=== PATIENT | male | born 1975 | race Two or more races ===

== ENCOUNTER 2019-02-09 21:44 | Emergency (ER) | payer OTHER ==
[~2019-02-09] VITALS: Ht 180.3 cm; Wt 95.3 kg
[2019-02-09 21:58] VITALS: BP 142/117
--- NOTE | 2019-02-09 22:06 | PHYS DOC ---
Past History Past Medical History: No Pertinent History Past Surgical History: No Surgical History Alcohol Use: Occasionally Drug Use: None Adult General Chief Complaint Chief Complaint: RECTAL BLEED.. ".. I ve got really bad rectal pain.. it is more on the right just inside.. I ve had hemorrhoids before.. but this is really painful tonight.. 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 Patient has had previous problems with hemorrhoids. And recently had some hard stools. Patient denies any active bright red bleeding currently. Patient normally follows at [place]. No recent travel. No specific ill contacts. No history immunosuppression. Patient does have findings of old hemorrhoid tag and inflamed small hemorrhoid on the right. There is a small fissure but does not appear to be particularly inflamed. Review of Systems Review of Systems Constitutional: Denies fever or chills [] Eyes: Denies change in visual acuity, redness, or eye pain [] HENT: Denies nasal congestion or sore throat [] Respiratory: Denies cough or shortness of breath [] Cardiovascular: No additional information not addressed in HPI [] GI: Denies abdominal pain, nausea, vomiting, bloody stools or diarrhea [. Patient]complaints of rectal pain : Denies dysuria or hematuria [] Musculoskeletal: Denies back pain or joint pain [] Integument: Denies rash or skin lesions [] Neurologic: Denies headache, focal weakness or sensory changes [] Endocrine: Denies polyuria or polydipsia [] All other systems were reviewed and found to be within normal limits, except as documented in this note. Family History Family History Noncontributory Current Medications Current Medications See nursing for home meds Allergies Allergies No known drug allergies Physical Exam Physical Exam Constitutional: Well developed, well nourished, in acute distress, non-toxic appearance. [] HENT: Normocephalic, atraumatic, bilateral external ears normal, oropharynx moist, no oral exudates, nose normal. [] Eyes: PERRLA, EOMI, conjunctiva normal, no discharge. [] Neck: Normal range of motion, no tenderness, supple, no stridor. [] Cardiovascular:Heart rate regular rhythm, no murmur [] Lungs & Thorax: Bilateral breath sounds clear to auscultation [] Abdomen: Bowel sounds normal, soft, no tenderness, no masses, no pulsatile masses. [] Findings of a small hemorrhoid and small fissure rectal area. Area very tender. No findings of pointing abscess Skin: Warm, dry, no erythema, no rash. [] Back: No tenderness, no CVA tenderness. [] Extremities: No tenderness, no cyanosis, no clubbing, ROM intact, no edema. [] Neurologic: Alert and oriented X 3, normal motor function, normal sensory function, no focal deficits noted. [] Psychologic: Affect anxious, judgement normal, mood normal. [] Current Patient Data Vital Signs Vital Signs Date Time Temp Pulse Resp B/P (MAP) Pulse Ox O2 Delivery O2 Flow Rate FiO2 02/09/19 21:58 97.7 77 22 97 Room Air EKG EKG [] Radiology/Procedures Radiology/Procedures [] Course & Med Decision Making Course & Med Decision Making Pertinent Labs and Imaging studies reviewed. (See chart for details) Patient to do sitz bath or hot showers frequently. Patient to apply Anusol HC suppositories up to 4 times a day. Patient keep stool soft. For marked pain may take Vicoprofen. Patient to apply Nupercaine or Dibucaine up 4 x day prn. Follow-up with GI or surgery to have a colonoscopy to evaluate internal hemorrhoids or other causes of rectal pain. Patient return if any concerns. [] Dragon Disclaimer Yana Disclaimer This electronic medical record was generated, in whole or in part, using a voice recognition dictation system. Departure Departure: Disposition: HOME/RESIDENCE PRIOR TO ADM Condition: STABLE Scripts Dibucaine (DIBUCAINE) 28 Gm Oint...g. 1 CLAIRE RC QIDPRN PRN for PAIN for 30 Days, #120 GM 0 Refills Prov: CHRISTINA WAYNE MD 02/09/19 Hydrocodone/Ibuprofen (HYDROCODONE-IBUPROFEN 7.5-200 ) 1 Each Tablet 1 TAB PO PRN Q6HRS PRN for PAIN, #30 TAB 0 Refills Prov: CHRISTINA WAYNE MD 02/09/19 Hydrocortisone Acetate (ANUSOL-HC) 25 Mg Supp.rect 25 MG RC QIDPRN PRN for PAIN, #120 SUPP.RECT Prov: CHRISTINA WAYNE MD 02/09/19 Yana Disclaimer This chart was dictated in whole or in part using Voice Recognition software in a busy, high-work load, and often noisy Emergency Department environment. It may contain unintended and wholly unrecognized errors or omissions. Dragon Disclaimer This chart was dictated in whole or in part using Voice Recognition software in a busy, high-work load, and often noisy Emergency Department environment. It may contain unintended and wholly unrecognized errors or omissions. CHRISTINA WAYNE MD Feb 09, 2019 22:06
[2019-02-09] MEDS ORDERED: HYDR-1179 PO (22:32)
[2019-02-09] MEDS ORDERED: HYDR25SU18 RC (22:32)
[2019-02-09] MEDS ORDERED: DIBU28OI RC (22:32)
[2019-02-09] MEDS ORDERED: DIBUCAINE RECTAL OINTMENT 28GM TUBE. RC ONE (23:00)
[2019-02-09] MEDS ORDERED: MAGNESIUM HYDROXIDE 2,400 MG/30 ML ORAL.SUSP. PO ONE (23:00)
[2019-02-09] MEDS ORDERED: KETOROLAC 60 MG/2 ML VIAL. IM ONE (23:00)
== END 2019-02-09 23:08 | disposition home or self-care (01) ==
LOC: ER 21:44
DX: K60.2 Anal fissure, unspecified (principal); K64.9 Unspecified hemorrhoids
CPT/HCPCS: 96372; 99283; J1885

== ENCOUNTER → 2019-02-20 | Outpatient (CLI) | payer OTHER ==
[2019-02-09 21:58] VITALS: BP 142/117
[~2019-02-20] MED LIST: CONTRAST GIVEN MC PRN; DIBU28OI RC; HYDR-1179 PO; HYDR25SU18 RC; IOHEXOL 240 MG/ML 50ML VIAL. ONE; IOHEXOL 300 MG/ML 75 ML VIAL. IV ONE
--- NOTE | 2019-02-20 15:10 | RAD ---
Examination: CT ABD PELV W/ORAL IV CONTRAST History: Rectal pain for 1 1/2 months Comparison/Correlation: None Findings: Axial images of the abdomen and pelvis were obtained following IV and oral contrast. Sagittal and coronal reformatted images were provided. Lung bases are clear. Liver, spleen, pancreas, adrenal glands, and kidneys are normal. Gallbladder fossa is unremarkable. Appendix is normal. No ascites or pelvic free fluid. Mild diverticulosis of the colon is present. Small umbilical hernia contains omental fat. Urinary bladder is unremarkable. Prostate gland is slightly enlarged measuring up to 4.8 cm transverse. No enlarged abdominal or pelvic lymph nodes. No bowel obstruction. No inflammatory findings involving the pelvis. Rectal wall is uniform in appearance. No suspicious collections within the pelvis or abdomen. Bony structures are unremarkable for the patient's age. Impression: No acute inflammatory processes or masses identified. Diverticulosis. PQRS Compliance Statement: One or more of the following individualized dose reduction techniques were utilized for this examination: 1. Automated exposure control 2. Adjustment of the mA and/or kV according to patient size 3. Use of iterative reconstruction technique Electronically signed by: Juliano Fraire MD (02/20/2019 3:07 PM) [facility]
== END | disposition home or self-care (01) ==
LOC: CT 12:57
PROVIDERS: ATTEND Internal Medicine Gastroenterology
DX: K57.30 Diverticulosis of large intestine without perforation or abscess without bleeding (principal); K42.9 Umbilical hernia without obstruction or gangrene; K62.89 Other specified diseases of anus and rectum; N40.0 Benign prostatic hyperplasia without lower urinary tract symptoms
CPT/HCPCS: 74177; Q9967